=== PATIENT | female | born 1955 | race African-American/Black ===

== ENCOUNTER 2021-07-03 11:54 | Emergency (ER) | payer MEDICAID ==
[~2021-07-03] VITALS: Ht 182.9 cm; Wt 61.5 kg
[2021-07-03 14:00] VITALS: BP 151/88
--- NOTE | 2021-07-03 16:21 | PHYS DOC ---
Past Medical History Past Medical History: No Pertinent History Additional Past Surgical Histo: cateract Smoking Status: Never Smoker Alcohol Use: None Drug Use: None General Adult EDM: Chief Complaint: LOWER EXT PAIN HPI: HPI: Patient is a 65-year-old female that presents today with lower extremity discoloration of skin and itching. Patient states that she has poor eyesight due to cataracts and some eye conditions, she states that in December of this year someone pointed out that her skin of her lower extremities was discolored, patient states that she has had increased itching over the last couple days from this, and she states that her family brought her here to have her checked out. Patient denies chest pain, shortness of breath, pain in her legs, or fever or chills. Patient does not have a primary care physician and is requesting resources for getting a new primary care Review of Systems: Review of Systems: Constitutional: Denies fever or chills. [] Eyes: Denies change in visual acuity. [] HENT: Denies nasal congestion or sore throat. [] Respiratory: Denies cough or shortness of breath. [] Cardiovascular: Denies chest pain or edema. [] GI: Denies abdominal pain, nausea, vomiting, bloody stools or diarrhea. [] : Denies dysuria. [] Musculoskeletal: Denies back pain or joint pain. [] Integument: Bilateral lower leg skin discoloration and itching] Neurologic: Denies headache, focal weakness or sensory changes. [] Endocrine: Denies polyuria or polydipsia. [] Lymphatic: Denies swollen glands. [] Psychiatric: Denies depression or anxiety. [] Heart Score: C/O Chest Pain: N/A Risk Factors: Risk Factors: DM, Current or recent (<one month) smoker, HTN, HLP, family history of CAD, obesity. Risk Scores: Score 0 - 3: 2.5% MACE over next 6 weeks - Discharge Home Score 4 - 6: 20.3% MACE over next 6 weeks - Admit for Clinical Observation Score 7 - 10: 72.7% MACE over next 6 weeks - Early Invasive Strategies Allergies: Allergies: Allergies Coded Allergies Type Severity Reaction Last Updated Verified No Known Drug Allergies 07/03/21 No Physical Exam: PE: Constitutional: Well developed, well nourished, no acute distress, non-toxic appearance. [] HENT: Normocephalic, atraumatic, bilateral external ears normal, oropharynx moist, no oral exudates, nose normal. [] Eyes: PERRLA, EOMI, conjunctiva normal, no discharge. [] Neck: Normal range of motion, no tenderness, supple, no stridor. [] Cardiovascular:Heart rate regular rhythm, no murmur [] Lungs & Thorax: Bilateral breath sounds clear to auscultation [] Abdomen: Bowel sounds normal, soft, no tenderness, no masses, no pulsatile masses. [] Skin: Warm, dry, no erythema, no rash. [] Back: No tenderness, no CVA tenderness. [] Extremities: Lower extremities trace edema noted right greater than left, dis coloration noted from half the tibia down, skin is dry very flaky, pedal pulses are 2+ bilaterally sensory intact bilaterally cap refill less than 2 seconds bilaterally. No pain with palpation of either leg, negative Homans' sign, patient does walk with a cane but she states is due to her eyesight. Neurologic: Alert and oriented X 3, normal motor function, normal sensory function, no focal deficits noted. [] Psychologic: Affect normal, judgement normal, mood normal. [] Current Patient Data: Vital Signs: Vital Signs Date Time Temp Pulse Resp B/P (MAP) Pulse Ox O2 Delivery O2 Flow Rate FiO2 07/03/21 14:00 98.5 60 20 151/88 (109) 99 Room Air 98.5 EKG: EKG: [] Radiology/Procedures: Radiology/Procedures: [] Course & Med Decision Making: Course & Med Decision Making Pertinent Labs and Imaging studies reviewed. (See chart for details) [address] Cobos regarding this patient's care he suggested patient get a primary care physician and follow-up for further testing of her lower extremities, patient is free of pain in bilateral legs no redness no swelling noted. Patient has been given brochures related to prime physicians to follow-up with also a list of community clinics patient can follow-up with that are little to no cost due to funding. Patient verbalizes understanding of discharge instruction and is agreeable to the plan of care Samuel Disclaimer: Samuel Disclaimer: This electronic medical record was generated, in whole or in part, using a voice recognition dictation system. Departure Departure Impression: Primary Impression: Venous stasis dermatitis of both lower extremities Disposition: 01 HOME / SELF CARE / HOMELESS Referrals: VIVIANE MCKEON MD Patient Instructions: Stasis Dermatitis Additional Instructions: Use [id number] moisturizer such as Aquaphor or Eucerin cream. Follow-up with one of the clinics and or prime physicians for further management of your venous stasis ANTONIA QUIÑONEZ APRN Jul 03, 2021 16:21
== END 2021-07-03 16:55 | disposition home or self-care (01) ==
LOC: ER 11:54
DX: I87.2 Venous insufficiency (chronic) (peripheral) (principal)
CPT/HCPCS: 99282

== ENCOUNTER → 2021-08-19 | Outpatient (CLI) | payer MEDICAID ==
--- NOTE | 2021-08-19 16:03 | RAD ---
INDICATION: Reason: LEG SWELLING / Spl. Instructions: / History: COMPARISON: None. TECHNIQUE: Grayscale, color and doppler ultrasound images were obtained of the bilateral lower extrem ity venous vasculature. RIGHT: No thrombus identified in the common femoral vein, femoral vein, popliteal vein or visualized calf ve ins. LEFT: No thrombus identified in the common femoral vein, femoral vein, popliteal vein or visualized calf ve ins. IMPRESSION: * No thrombus identified in deep venous system of bilateral lower extremities. Electronically signed by: Eugenio Field MD (08/19/2021 4:01 PM) [id number]
== END ==
LOC: US 08-02 14:04
PROVIDERS: ATTEND Family Medicine
DX: M79.89 Other specified soft tissue disorders (principal)
CPT/HCPCS: 93970

== ENCOUNTER → 2021-09-22 | Outpatient (CLI) | payer MEDICAID ==
--- NOTE | 2021-09-22 15:26 | RAD ---
INDICATION : Routine Screening. COMPARISON: None available TECHNIQUE: Standard mammogram screening views of the bilateral breasts were obtained. CAD was utilize d. FINDINGS: The breasts are extremely dense which limits the sensitivity of mammography. No definite suspicious mass. IMPRESSION: BI-RADS Category 1: Negative. Recommend repeat screening examination in one year. Of note the patien t has extremely dense breast tissue which could obscure an underlying mass and it may be helpful to o btain a follow-up whole breast ultrasound or three-dimensional mammogram to better evaluate given the limitation of this exam. The patient was placed into the recall system with a suggested recall date for follow up imaging. Mammography is the most sensitive method for finding small breast cancers, but it does not detect the m all and is not a substitute for careful clinical examination. A negative mammogram does not negate a clinically suspicious finding and should not result in delay in biopsying a clinically suspicious abnormality. Electronically signed by: Eugenio Field MD (09/22/2021 3:24 PM) [id number]
== END ==
LOC: MAMMO 10:00
PROVIDERS: ATTEND Family Medicine
DX: Z12.31 Encounter for screening mammogram for malignant neoplasm of breast (principal)
CPT/HCPCS: 77067